=== PATIENT | female | born 1960 | race Caucasian/White ===

== ENCOUNTER 2016-05-26 07:55 | Day surgery (SDC) | payer BC, OTHER ==
[~2016-05-26 07:55] MED LIST: DIPHENHYDRAMINE HCL 50 MG/ML VIAL ONE; EPINEPHRINE INJ 1 MG/10 ML DISP.SYRIN ONE; FLUMAZENIL INJ 0.5 MG/5 ML VIAL IV ONE; GLUCAGON,HUMAN RECOMB 1 MG INJ ONE; MIDAZOLAM 2 MG/2 ML INJ ONE; NALOXONE HCL INJ/PF 0.4 MG/1 ML SDV ONE; ONDANSETRON HCL INJ/PF 4 MG/2 ML SDV ONE; PROMETHAZINE HCL INJ 25 MG/1 ML VIAL ONE
[2016-05-26] MEDS: MIDAZOLAM 2 MG/2 ML INJ ONE ×2 (08:40→08:46)
[2016-05-26] MEDS: FENTANYL CITRATE INJ/PF 100 MCG/2 ML AMPUL ONE ×2 (08:42→08:44)
--- NOTE | 2016-05-26 09:04 | Operative Report ---
Operative Report DATE OF SURGERY: 05/26/16 Operative Report: The risks, benefits and alternatives of the procedure including risks of bleeding, perforation requiring surgery are explained to the patient detail and informed consent is obtained. Patient is taken back to the endoscopy suite. She is placed in a left, lateral decubital position. Timeout is called. A rectal examination was done which did not reveal any masses, tears or fissures. An Olympus video scope was inserted into the patient's rectum. The scope was then gradually advanced all the way to the cecum. The cecum was identified by the usual anatomical landmarks of the ileocecal valve as well as the appendiceal office. Photodocumentation is obtained. The scope was then sequentially pulled back via the rest segments of the colon including the ascending colon, hepatic flexure, transverse colon, splenic flexure, descending colon and finally into the rectosigmoid portions of the colon. Retroflexion maneuvers performed. Prep is good. Photodocumentation was obtained. PREOPERATIVE DIAGNOSIS: Colon rectal cancer screening POSTOPERATIVE DIAGNOSIS: Rectal polyp status post snare polypectomy and retrieved OPERATION: Colonoscopy with snare polypectomy SURGEON: ALEYDA HACKETT ANESTHESIA: Moderate Sedation - 4 mg of Versed, 1 g of fentanyl. Conscious sedation monitoring time 30 minutes. TISSUE REMOVED OR ALTERED: Retrieved. COMPLICATIONS: None. ESTIMATED BLOOD LOSS: none. INTRAOPERATIVE FINDINGS: No masses, AVMs, diverticulosis noted. PROCEDURE: Patient tolerated procedure well. No immediate postprocedure complications are noted. Patient is discharged in good condition. Discharge date 05/26/2016. Discharge diet: Regular. Discharge activity: Regular. We'll need surveillance colonoscopy in 5 years depending on the pathology of the polyp. We'll await on biopsies. 2-3 week follow-up. Patient is instructed to call the office or proceed to the emergency room if any further problems or questions.
[2016-05-26 10:42] VITALS: BP 109/66
== END 2016-05-26 10:55 | disposition home or self-care (01) ==
LOC: END 07:55
PROVIDERS: ATTEND Internal Medicine Gastroenterology
PROC: 0DBP8ZX Excision of Rectum, Via Natural or Artificial Opening Endoscopic, Diagnostic (ICD-10-PCS; principal; 2016-05-26 08:30)
DX: Z12.11 Encounter for screening for malignant neoplasm of colon (principal); I10 Essential (primary) hypertension; R73.02 Impaired glucose tolerance (oral); K62.1 Rectal polyp; Z87.891 Personal history of nicotine dependence; Z79.899 Other long term (current) drug therapy; Z79.84 Long term (current) use of oral hypoglycemic drugs
CPT/HCPCS: 45385; 82962; 88305 ×2; J2250; J3010; J0171; J1200; J1610; J2310; J2405; J2550; J3490